=== PATIENT | female | born 1970 | race Caucasian/White ===

== ENCOUNTER 2016-07-07 13:58 | Emergency (ER) | payer OTHER ==
[~2016-07-07] VITALS: Ht 170.2 cm; Wt 90.7 kg
[~2016-07-07 13:58] MED LIST: CYCLOBENZAPRINE10 M1 PO; DULCOLAX5 MG PO; IBUPROFEN600 M1 PO; LEVOTHYROXIN0.075 M1 PO; LEVOTHYROXINE0.2 M2 PO; MACRODANTIN100 MG PO; METHADONE10 MG/5 M2 PO; MILK OF MAGNESI30 ML PO; ONDANSETRON4 M1 PO; PERCOCET 325 MG1 TA2 PO; PYRIDIUM200 MG PO; SUMATRIPTAN SUC50 MG PO
[2016-07-07 14:04] VITALS: BP 124/83
--- NOTE | 2016-07-07 14:52 | RADIOLOGY REPORT ---
EXAMINATION: XR CERVICAL SPINE CLINICAL INFORMATION: Pain COMPARISON: None. TECHNIQUE: 4 views AP and lateral FINDINGS: Degenerative changes C5-C6 greater than C6-C7. No fracture or dislocation is seen here. The odontoid view is suboptimal. IMPRESSION: Degenerative changes. No fracture or dislocation is seen.
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
[2016-07-07] MEDS ORDERED: LEVOTHYROXINE100 MC1 PO (15:00)
[2016-07-07] MEDS ORDERED: CYCLOBENZAPRINE10 M1 PO (15:02)
[2016-07-07] MEDS ORDERED: NAPROSYN500 M1 PO (15:02)
== END 2016-07-07 15:25 ==
LOC: ERH 13:58
DX: S16.1XXA Strain of muscle, fascia and tendon at neck level, initial encounter (principal); V89.2XXA Person injured in unspecified motor-vehicle accident, traffic, initial encounter
CPT/HCPCS: 72050

== ENCOUNTER 2016-11-05 08:49 | Emergency (ER) | payer OTHER ==
[~2016-11-05] VITALS: Ht 170.2 cm; Wt 90.7 kg
[~2016-11-05 08:49] MED LIST changes: +LEVOTHYROXINE100 MC1 PO; +NAPROSYN500 M1 PO
[2016-11-05] MEDS ORDERED: LEVOTHYROXINE200 MC1 PO (09:09)
[2016-11-05] MEDS ORDERED: IMITREX50 M1 PO (09:09)
--- NOTE | 2016-11-05 09:24 | ED CARDIAC/CP/PALPITATIONS ---
History of Present Illness General Chief Complaint: Chest Pain Stated Complaint: CP Source: patient Exam Limitations: no limitations Vital Signs & Intake/Output Vital Signs & Intake/Output Vital Signs Date Time Temp Pulse Resp B/P B/P Pulse O2 O2 Flow FiO2 Mean Ox Delivery Rate 11/05 1512 98.6 89 15 124/74 100 Room Air 11/05 1351 97.9 61 15 121/76 100 Room Air 11/05 1144 98.4 63 18 114/76 96 Room Air 11/05 0956 62 20 115/67 97 Room Air 11/05 0858 97.0 73 20 137/86 97 Room Air Allergies Coded Allergies: Sulfa (Sulfonamide Antibiotics) (UNKNOWN 06/17/16) Reconcile Medications Levothyroxine Sodium 100 MCG TABLET 0.5 TAB PO DAILY AC THYROID (Reported) Levothyroxine Sodium 200 MCG TABLET 1 TAB PO DAILY AC THYROID (Reported) Methadone HCl 10 MG/5 ML SOLUTION 85 MG PO DAILY ADDICTION (Reported) Sumatriptan Succinate (Imitrex) 50 MG TABLET 1 TAB PO DAILY PRN HEADACHE ( Reported) Triage Note: PT PRESENTS TO ER C/O OF LEFT SIDED CHEST PAIN SINCE LAST NIGHT. PT STATES PAIN FEELS LIKE A SHARP PRESSURE AND IS WORSE TODAY. PT STATES PAIN GETS WORSE WITH EXERTION AND A DEEP BREATH. PT VISIBLY ANXIOUS ON ARRIVAL Triage Nurses Notes Reviewed? yes HPI: This patient is a 46-year-old female with a past medical history including hypothyroidism who presented to the emergency department today for evaluation of left-sided chest pain since this morning. The patient reported that she woke up around 7:00 this morning with pain in her left chest which is worse with deep breaths. The pain is sharp and gets up to an 8 out of 10. She reported that it is nonradiating, but she does feel some of the pain in her shoulder. She reported that she does have a history of shoulder surgeries. The patient reported that the pain has been constant since onset. No palliative factors. The patient is not on any blood thinners. She did not take aspirin this morning. The patient denied any fevers, chills, headaches, visual changes, jaw pain, arm pain, numbness or tingling in her extremities, abdominal pain, nausea, vomiting, calf pain, leg swelling, recent surgery, recent prolonged immobilization, or any history of blood clots. No exogenous estrogen use. (SELWYN MONTES DE OCA PA-C) Past History Travel History Traveled to [place] past 21 day No Medical History Any Pertinent Medical History? see below for history Neurological: MIGRAINES Respiratory: SLEEP APNEA Endocrine: hypothyroidism Surgical History Surgical History: non-contributory Psychosocial History What is your primary language Persian Tobacco Use: Current Daily Use Daily Tobacco Use Amount/Type: => 5 Cigarettes daily Family History Hx Contributory? No (SELWYN MONTES DE OCA PA-C) Review of Systems Review of Systems Constitutional: Reports: no symptoms. EENTM: Reports: no symptoms. Respiratory: Reports: see HPI. Cardiovascular: Reports: see HPI. GI: Reports: no symptoms. Genitourinary: Reports: no symptoms. Musculoskeletal: Reports: no symptoms. Skin: Reports: no symptoms. Neurological/Psychological: Reports: no symptoms. All Other Systems: Reviewed and Negative (SELWYN MONTES DE OCA PA-C) Physical Exam Physical Exam Cardiovascular: regular rate/rhythm, normal peripheral pulses, no murmurs, rubs, or gallops. no jvd or carotid bruits Comments: Well-developed well-nourished person in who appears anxious HEENT: Normal EENT exam, head normocephalic, moist mucous membranes PERRLA bilaterally Neck: Supple, no lymphadenopathy. No midline tenderness Back: Normal gait. Normal inspection Respiratory: Chest nontender. No respiratory distress. Speaking in sentences. Lungs clear to auscultation bilaterally with no wheezes, rales, or rhonchi Extremity: Normal equal pulses. Capillary refill less than 2 seconds Neuro: Alert oriented x3, cranial nerves II through XII grossly intact. Skin: No appreciable rash on exposed skin, skin is warm and dry. Psych: Mood and affect is normal Core Measures ACS in differential dx? Yes Severe Sepsis Present: No Septic Shock Present: No (SELWYN MONTES DE OCA PA-C) Progress Differential Diagnosis: AMI, aortic dissection, atrial fibrillation, cholecystitis, CHF/pulm edema, costochondritis, hyperkalemia, hyperthyroid, hyperventilation, musculoskeletal pain, myocarditis, pancreatitis, pericarditis, pneumonia, pneumothorax, PSVT, pulmonary embolism, PUD/GERD, PVCs/PACs, unstable angina, anxiety Plan of Care: Orders Procedure Date/time Status Heart Healthy Diet 11/05 D Active TROPONIN LEVEL 11/05 1350 Complete EKG 11/05 1350 Active THYROID STIMULATING HORMONE 11/05 0903 Complete TROPONIN LEVEL 11/05 902 Complete MAGNESIUM 11/05 902 Complete LIPID PANEL 11/05 902 Complete HUMAN BETA HCG SCREEN 11/05 902 Complete FREE T4 11/05 902 Complete D-DIMER 11/05 902 Complete COMPREHENSIVE METABOLIC PANEL 11/05 902 Complete CBC WITHOUT DIFFERENTIAL 11/05 902 Complete EKG 11/05 0850 Active Laboratory Tests 11/05/16 1410: Troponin I < 0.01 11/05/16 0947: Anion Gap 9, Estimated GFR > 60, BUN/Creatinine Ratio 17.1, Glucose 85, Calcium 9.4, Magnesium 1.8, Total Bilirubin 0.6, AST 41 H, ALT 73 H, Alkaline Phosphatase 107, Troponin I < 0.01, Total Protein 7.0, Albumin 4.1, Globulin 2.9 , Albumin/Globulin Ratio 1.4, Triglycerides 165 H, Cholesterol 228 H, LDL Cholesterol, Calc 141 H, HDL Cholesterol 54, Cholesterol/HDL Ratio 4, TSH 3.370 , Free T4 1.61, Total Beta HCG NEGATIVE, D-Dimer 240 H, CBC w Diff NO MAN DIFF REQ, RBC 4.42, MCV 91.7, MCH 31.0, RDW 14.2, MPV 7.5, Gran % 48.0, Lymphocytes % 43.3, Monocytes % 5.3, Eosinophils % 2.7, Basophils % 0.7, Absolute Granulocytes 3.1, Absolute Lymphocytes 2.8, Absolute Monocytes 0.3, Absolute Eosinophils 0.2, Absolute Basophils 0, PUBS MCHC 33.8 Diagnostic Imaging: Viewed by Me: Radiology Read. Discussed w/RAD: Radiology Read. CXR Impression: PATIENT: RUBEN PRESSLEY PRESENT AGE: 46 PATIENT ACCOUNT NO: [id number] : 69 LOCATION: [facility] ORDERING PHYSICIAN: SELWYN MONTES DE OCA PA-C SERVICE DATE: 11/05/16 EXAM TYPE: RAD - XRY-CHEST XRAY, PA AND LATERAL EXAMINATION: XR CHEST CLINICAL INFORMATION: Chest pain, rule out cardiomegaly COMPARISON: 06/17/2016 TECHNIQUE: 2 views of the chest were obtained. FINDINGS: The lungs are clear with no focal consolidation. No evidence of pneumothorax, pulmonary edema, or pleural effusions. The cardiomediastinal silhouette is unremarkable. No acute osseous findings. IMPRESSION: No acute cardiopulmonary findings. DICTATED BY: ALEKSANDAR RUGGIERO MD DATE/TIME DICTATED:11/05/161050 CLINICAL RESEARCH ASSOCIATE:URI DATE/TIME TRANSCRIBED:11/05/161050 CONFIDENTIAL, DO NOT COPY WITHOUT APPROPRIATE AUTHORIZATION. <Electronically signed in Other Vendor System> SIGNED BY: ALEKSANDAR RUGGIERO MD 11/05/161055 Initial ED EKG: normal axis, normal intervals, normal p-waves, normal QRS complex, normal sinus rhythm, no ST T wave changes, 70 bpm Repeat EKG: unchanged (55 BPM) Comments: 11/05/2016 10:45:27 AM: This patient has a d-dimer of 240. She is PERC negative. She is less than 50 years old, heart rate is less than 100 bpm, she is satting on greater than 95% on room air, no history of previous venous thrombosis, no recent trauma or surgery within the last 4-6 weeks. No exogenous estrogen use, and no unilateral leg swelling or hemoptysis. According to the [facility] pulmonary embolism exclusion guidelines, positive d-dimer in a person less than 50 years of age is greater then 250. Based on the [facility] pulmonary embolism exclusion guidelines, this patient does not need a CTA at this time. 11/05/2016 10:51:28 AM: I was at the patient's bedside for reevaluation. She reported that the nitroglycerin did not help her pain. Updated her on laboratory studies. Normal EKG. First troponin level less than 0.01. This patient will be staying for a repeat EKG and second troponin level. The patient is in agreement with this plan. Discussed this patient with Dr. Virk who is also in agreement with the plan. (SELWYN MONTES DE OCA PA-C) Departure Departure Disposition: HOME OR SELF CARE Condition: Stable Clinical Impression Primary Impression: Chest pain Qualifiers: Chest pain type: unspecified Qualified Code: R07.9 - Chest pain, unspecified Referrals: REZA BLACK,JUANCARLOS TREVIÑO MD,LINDY Mcdonnell (PCP/Family) Additional Instructions: please follow-up with the dry color mixer whose information has been provided to you in this packet. return for any worsening symptoms or concerns. Departure Forms: Customer Survey General Discharge Information (SELWYN MONTES DE OCA PA-C) PA/COLOR SEPARATION PHOTOGRAPHER Co-Sign Statement Statement: ED Attending supervision documentation- [] I saw and evaluated the patient. I have also reviewed all the pertinent lab results and diagnostic results. I agree with the findings and the plan of care as documented in the PA's/COLOR SEPARATION PHOTOGRAPHER's documentation. [X] I have reviewed the ED Record and agree with the PA's/COLOR SEPARATION PHOTOGRAPHER's documentation. [] Additions or exceptions (if any) to the PAs/COLOR SEPARATION PHOTOGRAPHER's note and plan are summarized below: [] (TELMA BLACK,ANNE Oconnor) Critical Care Note Critical Care Note Critical Care Time: non-applicable (FALGUNI BARAJAS,SELWYN)
[2016-11-05 10:03] LABS: ABSOLUTE BASOPHIL COUNT 0 /CUMM (0.0-0.2); ABSOLUTE EOSINOPHIL COUNT 0.2 /CUMM (0.0-0.7); ABSOLUTE GRANULOCYTE CT 3.1 /CUMM (1.4-6.5); ABSOLUTE LYMPH COUNT 2.8 /CUMM (1.2-3.4); ABSOLUTE MONOCYTE COUNT 0.3 /CUMM (0.10-0.60); BASOPHIL % 0.7 % (0.0-2.0); EOSINOPHIL % 2.7 % (0-5); HEMATOCRIT 40.5 % (37-47); MEAN CORPUSCULAR HGB CONC 33.8 G/DL (33.0-37.0); MEAN CORPUSCULAR VOLUME 91.7 FL (81.0-99.0); MEAN PLATELET VOLUME 7.5 FL (7.4-10.4); PLATELET COUNT 249 /CUMM (130-400); RBC DISTRIBUTION WIDTH 14.2 % (11.5-14.5); RED BLOOD CELL CT 4.42 /CUMM (4.20-5.40); WHITE BLOOD CELL COUNT 6.5 /CUMM (4.8-10.8)
--- NOTE | 2016-11-05 10:56 | RADIOLOGY REPORT ---
EXAMINATION: XR CHEST CLINICAL INFORMATION: Chest pain, rule out cardiomegaly COMPARISON: 06/17/2016 TECHNIQUE: 2 views of the chest were obtained. FINDINGS: The lungs are clear with no focal consolidation. No evidence of pneumothorax, pulmonary edema, or pleural effusions. The cardiomediastinal silhouette is unremarkable. No acute osseous findings. IMPRESSION: No acute cardiopulmonary findings.
[2016-11-05 15:12] VITALS: BP 124/74
== END 2016-11-05 15:13 ==
LOC: ERH 08:49
PROVIDERS: Physician Assistant
DX: R07.9 Chest pain, unspecified (principal)
CPT/HCPCS: 93005; 93010; 96374; J1885

== ENCOUNTER 2017-11-21 22:06 | Emergency (ER) | payer OTHER ==
[~2017-11-21 22:06] MED LIST changes: +IMITREX50 M1 PO; +LEVOTHYROXINE200 MC1 PO
--- NOTE | 2017-11-21 23:24 | ED INFLUENZA/URI COMPLAINT ---
History of Present Illness General Chief Complaint: General Adult Stated Complaint: NASAL PAIN X 3 DAYS, NO INJURY Source: patient Exam Limitations: no limitations Vital Signs & Intake/Output Vital Signs & Intake/Output Vital Signs Date Time Temp Pulse Resp B/P B/P Pulse O2 O2 Flow FiO2 Mean Ox Delivery Rate 11/21 2210 97.1 79 17 152/93 97 Room Air Allergies Coded Allergies: Sulfa (Sulfonamide Antibiotics) (UNKNOWN 06/17/16) Reconcile Medications Amoxicillin/Potassium Clav (Augmentin 875-125 Tablet) 875 MG-125 MG TABLET 1 TAB PO BID SINUSITIS Levothyroxine Sodium 100 MCG TABLET 0.5 TAB PO DAILY AC THYROID (Reported) Levothyroxine Sodium 200 MCG TABLET 1 TAB PO DAILY AC THYROID (Reported) Methadone HCl 10 MG/5 ML SOLUTION 85 MG PO DAILY ADDICTION (Reported) Oxymetazoline HCl (Afrin) 0.05 % SPRAY 1 SPRAY IN TID PRN SINUS CONGESTION 3 DAYS MAX Prednisone 50 MG TABLET 1 TAB PO DAILY SINUSITIS Sumatriptan Succinate (Imitrex) 50 MG TABLET 1 TAB PO DAILY PRN HEADACHE ( Reported) Triage Note: PT TO ED WITH C/O 3 DAYS OF NON TRAUMATIC NASAL PAIN TO BRIDGE OF NOSE. REPORTS GETTING NEW CPAP MASK A FEW DAYS AGO, UNSURE IF THIS CONTRIBUTING TO PAIN. DENIES CONGESTION OR FEVERS. TRIED MOTRIN WITH MINIMAL RELIEF. Triage Nurses Notes Reviewed? yes Onset: Gradual Duration: day(s): Timing: recent history Severity: mild, moderate Prior Episodes/Possible Cause: no prior episodes Associated Symptoms: SINUS CONGESTION HPI: 47-year-old female presents with 3 days of sinus congestion and pressure. She states that she continues to smoke, uses CPAP, "but it does not always work." She notes, "when I lean forward I feel like there is fluid moving in my sinuses. " She has no fever chills shortness of breath sore throat dyspnea or chest pain. She is otherwise well and has no other concerns. Past History Travel History Traveled to [place] past 21 day No Medical History Any Pertinent Medical History? see below for history Neurological: MIGRAINES Respiratory: SLEEP APNEA Endocrine: hypothyroidism Surgical History Surgical History: non-contributory Psychosocial History What is your primary language Hebrew Tobacco Use: Current Daily Use Daily Tobacco Use Amount/Type: => 5 Cigarettes daily Family History Hx Contributory? No Review of Systems Review of Systems Constitutional: Reports: no symptoms. EENTM: Reports: no symptoms. Respiratory: Reports: no symptoms. Cardiovascular: Reports: no symptoms. GI: Reports: no symptoms. Genitourinary: Reports: no symptoms. Musculoskeletal: Reports: no symptoms. Skin: Reports: no symptoms. Neurological/Psychological: Reports: no symptoms. Hematologic/Endocrine: Reports: no symptoms. Immunologic/Allergic: Reports: no symptoms. All Other Systems: Reviewed and Negative Physical Exam Physical Exam Ears, Nose, Throat: mILD TENDERNESS TO PALPATION OF THE MAXILLARY SINUSES. mILD ERYTHEMA NOTED ON NASAL SPECULUM EXAM. nO JOSE DISCHARGE. tmS ARE NORMAL. Comments: Review of Systems - except as otherwise noted in HPI Physical Exam Physical Exam General Appearance: well developed/nourished, no apparent distress Head: atraumatic, normal appearance Eyes: Bilateral: normal appearance. Ears, Nose, see above, normal pharynx Neck: normal inspection, supple, full range of motion Respiratory: normal breath sounds, chest non-tender, no respiratory distress, quiet respiration, lungs clear Cardiovascular: regular rate/rhythm Gastrointestinal: normal bowel sounds, soft, non-tender, no organomegaly Back: normal inspection, normal range of motion Extremities: normal inspection, normal capillary refill, normal range of motion, no edema Neurologic/Psych: no motor/sensory deficits, awake, alert, oriented x 3 Skin: intact, normal color, warm/dry Core Measures Sepsis Present: No Sepsis Focused Exam Completed? No Progress Differential Diagnosis: pharyngitis, sinusitis, VERSUS OTHER Plan of Care: Sinusitis versus allergic rhinitis versus other Initial ED EKG: none Departure Departure Disposition: HOME OR SELF CARE Condition: Stable Clinical Impression Primary Impression: Sinusitis Referrals: Abad Rucker APRN (PCP/Family) Departure Forms: Customer Survey General Discharge Information Prescriptions: Current Visit Scripts Prednisone 1 TAB PO DAILY #3 TAB Oxymetazoline HCl (Afrin) 1 SPRAY IN TID PRN SINUS CONGESTION #1 SPRAY 3 DAYS MAX Amoxicillin/Potassium Clav (Augmentin 875-125 Tablet) 1 TAB PO BID #20 TAB Comments Patient referred to ENT this week. Patient given antibiotics steroids and Afrin. Close follow-up advised
[2017-11-21] MEDS ORDERED: AFRIN30 ML IN (23:41)
[2017-11-21] MEDS ORDERED: AUGMENTIN 875-1 EACH PO (23:41)
[2017-11-21] MEDS ORDERED: PREDNISONE50 M1 PO (23:41)
[2017-11-21 23:53] VITALS: BP 142/88
== END 2017-11-21 23:57 ==
LOC: ERH 22:06
DX: J32.9 Chronic sinusitis, unspecified (principal); F17.210 Nicotine dependence, cigarettes, uncomplicated